=== PATIENT | female | born 1990 | race Caucasian/White ===

== ENCOUNTER 2018-02-21 10:33 | Observation (INO) ==
--- NOTE | 2018-02-21 11:10 | OB/GYN Progress Note ---
Date of Encounter: 02/21/18 Time of Encounter: 11:07 - Assessment and Plan (1) 36 weeks gestation of Current Visit: Yes Status: Acute (2) Encounter for suspected PROM, with rupture of membranes not found Current Visit: Yes Status: Acute Speculum exam shows normal thick white discharge of , no visual pooling , ferning negative. Discharged home with labor and when to return to triage precautions. Patient verbalizes understanding Subjective - Subjective Interval history: 36+5 days' gestation presents to triage with complaints of leaking of fluid. Patient states she will working in the office an hour ago and folic she was leaking fluid. Reports good movement, denies contractions or vaginal bleeding Antepartum ROS: loss of fluid, movement normal, no vaginal bleeding, no contractions Objective - Exam FHR: auscultation normal FHR comments: Baseline 140 Abdomen: Present: normal appearance, soft, gravid Cervical dilation: /-3
[2018-02-21 13:28] LABS: Amphetamine Screen,Urine Negative ng/mL (Cutoff=1000); Barbiturate Screen,Urine Negative ng/mL (Cutoff=200); Benzodiazepines Screen,Urine Negative ng/mL (Cutoff=200); Cannabinoid Screen,Urine Negative ng/mL (Cutoff = 50); Cocaine Screen,Urine Negative ng/mL (Cutoff= 300); Opiate Screen,Urine Negative ng/mL (Cutoff=300); Phencyclidine Screen,Urine Negative ng/mL (Cutoff=25)
== END 2018-02-21 11:42 | disposition home or self-care (01) ==
LOC: 1NENULAB
PROVIDERS: ADMIT Obstetrics & Gynecology; ATTEND Obstetrics & Gynecology

== ENCOUNTER 2018-03-20 08:00 | Inpatient (IN) ==
[2018-03-20] MEDS ORDERED: Famotidine 20 MG/2 ML VIAL IVP PRN (09:09)
[2018-03-20] MEDS ORDERED: Ondansetron 4 MG/2 ML VIAL IVP PRN (09:09)
[2018-03-20] MEDS ORDERED: Metoclopramide 10 MG/2 ML VIAL IVP PRN (09:09)
[2018-03-20] MEDS ORDERED: *HR* Nalbuphine 10 MG/ML AMPUL IVP PRN (09:09)
[2018-03-20] MEDS ORDERED: Naloxone 0.4 MG/ML INJ IVP PRN (09:09)
[2018-03-20 09:37] LABS: Basophils # 0.1 K/mcL (0.0-0.2); Basophils % 0.4 %; Eosinophils # 0.1 K/mcL (0.0-0.6); Eosinophils % 0.6 %; Hematocrit 36.9 % (35.3-44.9); Hemoglobin 12.8 g/dL (11.5-15.4); Immature Granulocytes % 0.7 % (0-4); Lymphocytes # 2.3 K/mcL (0.6-4.6); Lymphocytes % 17.5 %; Mean Corpuscular HGB Conc 34.7 g/dL (31.6-35.5); Mean Corpuscular Hemoglobin 31.8 pg (28.0-33.3); Mean Corpuscular Volume 91.6 fL (83.0-100.0); Mean Platelet Volume 12.6 fL (9.4-12.4); Monocytes # 0.8 K/mcL (0.0-1.3); Monocytes % 5.9 %; Neutrophils # 9.7 K/mcL (1.6-8.9); Platelet Count 218 K/mcL (140-400); Red Blood Count 4.03 M/mcL (3.82-4.97); Red Cell Distribution Width 12.2 % (11.5-14.5); Segmented Neutrophils % 74.9 %
[2018-03-20 10:05] LABS: Amphetamine Screen,Urine Negative ng/mL (Cutoff=1000); Barbiturate Screen,Urine Negative ng/mL (Cutoff=200); Benzodiazepines Screen,Urine Negative ng/mL (Cutoff=200); Cannabinoid Screen,Urine Negative ng/mL (Cutoff = 50); Cocaine Screen,Urine Negative ng/mL (Cutoff= 300); Opiate Screen,Urine Negative ng/mL (Cutoff=300); Phencyclidine Screen,Urine Negative ng/mL (Cutoff=25)
[2018-03-20] MEDS ORDERED: Oxytocin 20 units/ LR 1000 mL 20 UNIT/1,000 ML BAG IVC SCH (10:15)
[2018-03-20] MEDS: Ringers Solution, Lactated 1,000 ML IVC SCH ×2 (10:27→19:30)
[2018-03-20] MEDS: Clindamycin 900 MG/50 ML 900 MG/50 ML IV.SOLN IVPB SCH ×2 (10:28→18:26)
--- NOTE | 2018-03-20 12:24 | OB/GYN History & Physical ---
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 Burton is a 27 year old female Patient is a 27-year-old 1 para 0 white female who is presently at 40 weeks and 4/7 admitted for induction of labor. She been followed in the office without any problems patient reports active fetus. Patient reports irregular contractions. Patient's history is significant for group B strep and positive. Past Med Surg Social Fam HX - Past Medical History Additional medical history: repetative ear infections as child (appx 1 y/o) requiring low amoxiciilin for several months as child Psychiatric history: no psych history - Past Surgical History Surgical History: breast surgery Additional surgical history: benign right lump incision and biopsy- developed abcess following - Social History Smoking Status: Never smoker Alcohol use: none Drug use: none - Family History Mother History Unknown: Yes Hx Family Cardiac Disorders: No Hx Family Respiratory Disorders: No Hx Family Cancer: Yes (Gi cancer) Hx Family Genitourinary Disorders: No Hx Family Endocrine Disorder: No Hx Family Musculoskeletal Disorders: No Hx Family Neuromuscular Disorders: No Hx Family Neurologic Disorders: No Hx Family HEENT Disorders: No Hx Family Autoimmune Disorders: No Hx Family Reproductive Disorders: No Hx Family Psychosocial Disorders: No Obstetrical History - Pregnancies : 1 Para: 0 Medications and Allergies Tablet 1 tab PO DAILY 02/21/18 [History] 3 Allergy/AdvReac Type Severity Reaction Status Date / Time Cefaclor [From [facility]] Allergy Mild Hives Verified 03/20/18 09:08 Review of System OB All systems PM: reviewed and no additional remarkable complaints except as stated - Genitourinary Genitourinary: amenorrhea - Menstruation Menstruation: amenorrhea Exam - Constitutional Constitutional: well developed, well nourished, no acute distress, average body habitus - HEENT HEENT: PERRL, Normocephaly - Neck Neck exam: full ROM - Lungs Respiratory exam: CTAB - Cardiovascular Cardiovascular exam: RRR - Extremities Extremities exam: full ROM Deep Tendon Reflex Grade: 2+ Normal - Vagina Vagina: Present: normal moisture - Cervix Dilation: 3 Effacement: 60 Station: -1 - Uterus Uterus exam: Present: enlarged - Anus/Rectum Anus/Rectum: Present: normal perianal skin Results Result Diagrams: 03/20/18 09:19 Abnormal lab results WBC 12.9 K/mcL (4.3-11.1) H 03/20/18 09:19 MPV 12.6 fL (9.4-12.4) H 03/20/18 09:19 Neutrophils # 9.7 K/mcL (1.6-8.9) H 03/20/18 09:19 All other labs normal. - VTE Reasons for not Prescribing Prophylaxis: Treatment not Indicated - Low risk for VTE
[2018-03-20] MEDS ORDERED: Clindamycin 900 MG/50 ML 900 MG/50 ML IV.SOLN IVPB SCH (16:00)
--- NOTE | 2018-03-20 21:46 | OB Labor Progress Note ---
Date of Encounter: 03/20/18 Time of Encounter: 21:44 Labor Progress Note - Cervix Cervix: 6/80/-1 - Heart Tones Heart Tones: CAT 1 - Interventions Interventions: AROM / clear IUPC placed - Plan Plan: Anticipate
[2018-03-20] MEDS ORDERED: Acetaminophen 325 MG TABLET PO ONE (22:00)
[2018-03-20] MEDS ORDERED: Epidural Premix (fent/bupiv) 110 ML EP SCH (23:15)
--- NOTE | 2018-03-21 00:19 | Anesthesia Evaluation PreOp ---
Date of Encounter: 03/21/18 Time of Encounter: 11:45 - Past History Planned Operation: ganesh Cardiac History: Denies any Significant Hx Pulmonary History: Denies Any Significant HX DRY CAN TENDER History: Denies Any Significant HX Anesthesia History: No Prior Anesthetic Complications : Yes Test: Positive Alcohol Use: none Drug use: none Medications and Allergies Tablet 1 tab PO DAILY 02/21/18 [History] 3 Allergy/AdvReac Type Severity Reaction Status Date / Time Cefaclor [From [facility]] Allergy Mild Hives Verified 03/20/18 09:08 - Meds/Allergy Pre-op Review Medications Reviewed: Yes Allergies Reviewed: No Beta Blockers on Current Med List: No Anesthesia Results - Labs 03/20/18 09:19 Anesthesia Exam - HEENT Pupil (Motor): Pupils equal Mallampati: II Teeth: Normal Oral Opening: Greater than 3 - DRY CAN TENDER LOC: Oriented DRY CAN TENDER Motor: Normal RUE, Normal LUE, Normal RLE, Normal LLE, Normal Face DRY CAN TENDER Sensory: Normal: RUE, LUE, RLE, LLE, Face - Cardiac Rhythm: Regular Murmur: None JVD: No Carotid Bruit: No - Pulmonary Breath Sounds: bilateral Clear Respiratory Effort: Symmetrical Anesthesia Assess/Plan ASA Score: 2 Modified Kathrine Scale for Level of Consciousness: Cooperative, oriented, and tranquil Anesthetic Plan: Regional Autologous Blood: No Monitoring Plan: Standard Monitors
--- NOTE | 2018-03-21 00:22 | Anesthesia Procedures ---
Date of Encounter: 03/21/18 Time of Encounter: 23:40 Procedures: Anesthesia - Epidural/Spinal Patient ID/Chart reviewed: Yes Patient examined: Yes OB Eval: Gestational age: 40.4 OB Eval: : 1 OB Eval: Hx Para: 0 OB Eval: Dilated at (cm): 5 Consent Obtained: Yes Site Prep: Aseptic Technique, Sterile prep and drape, Povidone-Iodine 1% Patient position: upright Amount of Local Anesthetic used: 3 Touhy Needle Gauge: 18 Touhy Needle Depth (cm): 6 Catheter Depth at Skin (cm): 8 Test Dose (1.5% Lido + Epi): Volume given (mls): 3 Test Dose Result: Negative Loading Dose: 0.25% Marcaine (mls): 10 Loading Dose Administered: Thru Catheter Infusion Rate (mls/hr): 14 Interspace Used: L3-L4 (2 attempts without complication) Loss of Resistance (MAMTA): Yes Blood: No CSF: No Paresthesia: No Procedure: DAEN without complication, states pain relieved.
[2018-03-21] MEDS: Clindamycin 900 MG/50 ML 900 MG/50 ML IV.SOLN IVPB SCH (02:04)
--- NOTE | 2018-03-21 05:22 | OB/GYN Procedure Note ---
Delivery - Delivery Date: 03/21/18 Provider: Ramón Iraheta Intrapartum events: none Delivery induction: oxytocin Delivery augmentation: rupture of membranes Delivery monitor: external FHT, internal uterine Anesthesia: epidural Quantitated Blood Loss: 250 - (s) Infant A Delivery Date: 03/21/18 Infant Delivery Time: 04:56 Presentation: vertex Position: NUBIA Route of delivery: Gender: Female Viability: Viable at 1 minute: 8 at 5 mins: 9 Shoulder Dystocia: not encountered Specimens collected: cord blood Placenta: spontaneous - Repair Episiotomy: none Laceration Description: None - Complications Delivery complications: none - Disposition Mom disposition: stable in LDR disposition: stable in LDR - Comments Comments: Patient progressed to complete and on the perineum. She delivered a live female weight is pending. Apgars were 8 and 9. Placenta delivered spontaneously intact. Estimated blood loss was 250 mL. No episiotomy or tears were encountered. Epidural anesthesia was used. Mom, father, and baby were skin to skin.
[2018-03-21] MEDS ORDERED: Oxytocin 20 units/ LR 1000 mL 20 UNIT/1,000 ML BAG IVC SCH (07:38)
[2018-03-21] MEDS ORDERED: Acetaminophen 325 MG TABLET PO PRN (07:38)
[2018-03-21] MEDS ORDERED: Measles/Mumps/Rubella Vacc 0.5 ML VIAL SQ PRN (07:38)
[2018-03-21] MEDS: Ibuprofen 600 MG TABLET PO PRN ×2 (10:37→18:56)
[2018-03-21] MEDS: Prenatal Vit/FA 1 EACH TABLET PO SCH (10:39)
[2018-03-22] MEDS: Ibuprofen 600 MG TABLET PO PRN ×2 (03:03→08:46)
[2018-03-22 06:21] LABS: Basophils # 0.1 K/mcL (0.0-0.2); Basophils % 0.4 %; Eosinophils # 0.1 K/mcL (0.0-0.6); Hematocrit 32.7 % (35.3-44.9); Immature Granulocytes % 0.4 % (0-4); Lymphocytes % 23.4 %; Mean Corpuscular HGB Conc 33.9 g/dL (31.6-35.5); Mean Corpuscular Volume 94.2 fL (83.0-100.0); Mean Platelet Volume 12.1 fL (9.4-12.4); Monocytes # 1.2 K/mcL (0.0-1.3); Monocytes % 9.6 %; Neutrophils # 8.4 K/mcL (1.6-8.9); Platelet Count 178 K/mcL (140-400); Red Blood Count 3.47 M/mcL (3.82-4.97); Red Cell Distribution Width 12.5 % (11.5-14.5); Segmented Neutrophils % 65.2 %
[2018-03-22 06:25] LABS: Hemoglobin 11.1 g/dL (11.5-15.4)
[2018-03-22] MEDS: Prenatal Vit/FA 1 EACH TABLET PO SCH (08:46)
[2018-03-22 08:51] VITALS: BP 113/72
--- NOTE | 2018-03-22 11:04 | Discharge Summary ---
Date of Encounter: 03/22/18 Time of Encounter: 11:02 - Discharge Diagnosis (1) Vaginal delivery Priority: Primary Status: Acute Comments: Stable in PP, pain well managed on po pain medication,tolerates diet, breast feeding, desires discharge. - Discharge Medications Prescriptions: Ibuprofen [Motrin] 600 mg PO Q6HR PRN #60 tablet PRN Reason: Cramping Docusate [Colace] 100 mg PO BID #30 capsule Home Medications: Tablet 1 tab PO DAILY 02/21/18 [History] Acetaminophen [Tylenol] 650 mg PO Q6HR PRN tablet 03/22/18 [Rx] Docusate [Colace] 100 mg PO BID #30 capsule 03/22/18 [Rx] Ibuprofen [Motrin] 600 mg PO Q6HR PRN #60 tablet 03/22/18 [Rx] Vit/FA 1 each PO DAILY tablet 03/22/18 [Rx] Allergies/Adverse Reactions: 3 Allergy/AdvReac Type Severity Reaction Status Date / Time Cefaclor [From [facility]] Allergy Mild Hives Verified 03/20/18 09:08 Data Procedures and tests throughout hospitalization: Laboratory Tests 03/20/18 03/20/18 03/22/18 09:19 09:19 05:59 WBC 12.9 H 12.9 H RBC 4.03 3.47 L Hgb 12.8 11.1 L D Hct 36.9 32.7 L MCV 91.6 94.2 MCH 31.8 32.0 MCHC 34.7 33.9 RDW 12.2 12.5 Plt Count 218 178 MPV 12.6 H 12.1 Immature Gran % 0.7 0.4 Seg Neutrophils % 74.9 65.2 Lymphocytes % 17.5 23.4 Monocytes % 5.9 9.6 Eosinophils % 0.6 1.0 Basophils % 0.4 0.4 Neutrophils # 9.7 H 8.4 Lymphocytes # 2.3 3.0 Monocytes # 0.8 1.2 Eosinophils # 0.1 0.1 Basophils # 0.1 0.1 Urine Opiates Screen Negative Ur Barbiturates Screen Negative Ur Phencyclidine Scrn Negative Ur Amphetamines Screen Negative U Benzodiazepines Scrn Negative Urine Cocaine Screen Negative U Marijuana (THC) Screen Negative Ur Drug Screen Interp See Below Labs on day of discharge: Labs from last 24 hours 03/22/18 05:59 WBC 12.9 H RBC 3.47 L Hgb 11.1 L D Hct 32.7 L MCV 94.2 MCH 32.0 MCHC 33.9 RDW 12.5 Plt Count 178 MPV 12.1 Immature Gran % 0.4 Seg Neutrophils % 65.2 Lymphocytes % 23.4 Monocytes % 9.6 Eosinophils % 1.0 Basophils % 0.4 Neutrophils # 8.4 Lymphocytes # 3.0 Monocytes # 1.2 Eosinophils # 0.1 Basophils # 0.1 Date of admission: 03/20/18 08:41 Primary care physician: Cari Mo CNP Consults: 03/21/18 07:38 Consult to Chemical Processing Supervisor [CONS] Routine Comment: Vaginal delivery, consult needed Discharging clinician: Sisi White Anticipated date of discharge: 03/22/18 - Patient Status Disposition: Home, Self-Care Condition: Good Functional capacity at discharge: independent ambulation Overall status at discharge: patient is back to baseline - Discharge Instructions Follow Up With: Cari Mo CNP [Primary Care Provider] - - Diet and Activity Activity: resume usual activities as tolerated Diet: regular diet Hospital Course Reason for admission: IUP at term Delivery: Episiotomy: none Laceration: none Other procedures: none complications: none Discharge diagnosis: IUP at term delivered [place] baby: female Hospital course: Delivery - Delivery Date: 03/21/18 Provider: Ramón Iraheta Intrapartum events: none Delivery induction: oxytocin Delivery augmentation: rupture of membranes Delivery monitor: external FHT, internal FHT Anesthesia: epidural Quantitated Blood Loss: 250 - Infant (s) A Infant Delivery Date: 03/21/18 Infant Delivery Time: 04:56 Presentation: vertex Position: NUBIA Route of delivery: Gender: Female Viability: Viable at 1 minute: 8 at 5 mins: 9 Shoulder Dystocia: not encountered Specimens collected: cord blood Placenta: spontaneous - Repair Episiotomy: none Laceration Description: None - Complications Delivery complications: none - Disposition Mom disposition: stable in PP and appropriate for discharge. Time Attestation: Total time spent providing and/or coordinating discharge services: Time Spent: Less than 30 minutes Exam - Constitutional Vitals: Temp Pulse Resp BP Pulse Ox 97.8 F 77 16 113/72 98 03/22/18 08:50 08/25/18 08:50 03/22/18 08:51 03/22/18 08:50 03/22/18 08:50 General appearance IM: A&O X 3 - Respiratory Respiratory exam: Present: CTAB - Cardiovascular Cardiovascular exam IM: Present: RRR - GI/Abdominal GI/Abdominal exam IM: soft - Uterine Tone: Firm Uterus Position: At Umbilicus - Extremities Exam Extremities exam IM: Present: normal capillary refill, normal inspection - Neurological Exam Neurological exam: normal gait, oriented X3 - Psychiatric Additional comments: reports good mood
== END 2018-03-22 12:15 | disposition home or self-care (01) | DRG 774 ==
LOC: 1NENULAB 08:41 → 1NENUOBS 03-21 07:37
PROVIDERS: ADMIT Obstetrics & Gynecology; ATTEND Obstetrics & Gynecology

== ENCOUNTER 2020-03-17 02:05 | Inpatient (IN) ==
[~2020-03-17 02:05] MED LIST: *HR* FentaNYL (PF) 100 MCG/2 ML VIAL IVP PRN; Famotidine 20 MG/2 ML VIAL IVP PRN; Lidocaine 1% 20 ML MDV INFILT PRN; Metoclopramide 10 MG/2 ML VIAL IVP PRN; Naloxone 0.4 MG/ML INJ IVP PRN
[2020-03-17] MEDS ORDERED: EPHEDrine 50 MG/ML VIAL IVP PRN (02:10)
[2020-03-17] MEDS ORDERED: *HR* FentaNYL (PF) 100 MCG/2 ML VIAL EP ONE (02:10)
[2020-03-17] MEDS ORDERED: Bupivacaine-MPF 0.25% 10 ML VIAL EP ONE (02:10)
[2020-03-17] MEDS ORDERED: Bupivacaine-MPF 0.25% 10 ML VIAL ONE (02:12)
[2020-03-17] MEDS ORDERED: *HR* FentaNYL (PF) 100 MCG/2 ML VIAL ONE ×2 (02:12→03:24)
[2020-03-17] MEDS ORDERED: Ringers Solution, Lactated 1,000 ML ONE ×2 (02:12→02:25)
[2020-03-17] MEDS ORDERED: Epidural Premix (fent/bupiv) 110 ML EP SCH (02:15)
[2020-03-17] MEDS ORDERED: Penicillin G Potassium 5,000,000 UNIT in 0.9 % Sodium Chloride Mini Bag 100 ML IVPB ONE (02:17)
[2020-03-17 02:27] LABS: Basophils % 0.3 %; Eosinophils # 0.1 K/mcL (0.0-0.6); Eosinophils % 0.7 %; Hematocrit 38.1 % (35.3-44.9); Hemoglobin 12.9 g/dL (11.5-15.4); Immature Granulocytes % 0.6 % (0-4); Lymphocytes # 2.9 K/mcL (0.6-4.6); Lymphocytes % 22.7 %; Mean Corpuscular HGB Conc 33.9 g/dL (31.6-35.5); Mean Corpuscular Hemoglobin 31.6 pg (28.0-33.3); Mean Corpuscular Volume 93.4 fL (83.0-100.0); Mean Platelet Volume 12.3 fL (9.4-12.4); Monocytes # 1.1 K/mcL (0.0-1.3); Monocytes % 8.3 %; Neutrophils # 8.5 K/mcL (1.6-8.9); Platelet Count 209 K/mcL (140-400); Red Blood Count 4.08 M/mcL (3.82-4.97); Red Cell Distribution Width 12.1 % (11.5-14.5); Segmented Neutrophils % 67.4 %; White Blood Count 12.6 K/mcL (4.3-11.1)
[2020-03-17 02:36] LABS: Amphetamine Screen,Urine Negative ng/mL (Cutoff=1000); Barbiturate Screen,Urine Negative ng/mL (Cutoff=200); Benzodiazepines Screen,Urine Negative ng/mL (Cutoff=200); Cannabinoid Screen,Urine Negative ng/mL (Cutoff = 50); Cocaine Screen,Urine Negative ng/mL (Cutoff= 300); Opiate Screen,Urine Negative ng/mL (Cutoff=300); Phencyclidine Screen,Urine Negative ng/mL (Cutoff=25)
[2020-03-17] MEDS ORDERED: Ondansetron 4 MG/2 ML VIAL IVP PRN (03:10)
[2020-03-17] MEDS ORDERED: Ropivacaine/PF 0.2% 20 ML VIAL ONE (03:24)
[2020-03-17] MEDS ORDERED: Penicillin G Potassium 2,500,000 UNIT/105 ML UNIT IVPB SCH (06:00)
[2020-03-17] MEDS ORDERED: Benzocaine/Menthol 56 GM AEROSOL SPRAY TP PRN (08:14)
[2020-03-17] MEDS ORDERED: Oxytocin 20 units/ LR 1000 mL 20 UNIT/1,000 ML BAG IVC SCH (08:14)
[2020-03-17] MEDS ORDERED: Lanolin 7 G OINT...G. TP PRN (08:14)
[2020-03-17] MEDS ORDERED: Rho Immune Globulin 1,500 UNIT SYRINGE IM PRN (08:14)
[2020-03-17] MEDS: Prenatal Vit/FA 1 EACH TABLET PO SCH (10:07)
[2020-03-17] MEDS: Ibuprofen 600 MG TABLET PO PRN ×2 (10:58→17:04)
[2020-03-17] MEDS ORDERED: Ibuprofen 600 MG TABLET PO SCH (12:00)
[2020-03-17] MEDS: Acetaminophen 325 MG TABLET PO PRN (20:45)
[2020-03-18] MEDS: Ibuprofen 600 MG TABLET PO PRN ×2 (01:40→09:01)
[2020-03-18] MEDS: Acetaminophen 325 MG TABLET PO PRN (04:46)
[2020-03-18 07:52] VITALS: BP 100/63
[2020-03-18] MEDS: Prenatal Vit/FA 1 EACH TABLET PO SCH (08:11)
== END 2020-03-18 11:38 | disposition home or self-care (01) | DRG 807 ==
LOC: 1NENULAB → 1NENUOBS 08:34
PROVIDERS: ADMIT Obstetrics & Gynecology; ATTEND Obstetrics & Gynecology